=== PATIENT | male | born 2000 | race Two or more races ===

== ENCOUNTER 2021-09-26 08:38 | Outpatient (CLI) | payer OTHER | END 2021-09-26 15:00 | disposition home or self-care (01) | LOC: LAB 08:38 | PROVIDERS: ATTEND General Practice | DX: R07.89 Other chest pain (principal); Z00.01 Encounter for general adult medical examination with abnormal findings; Z11.3 Encounter for screening for infections with a predominantly sexual mode of transmission; Z12.11 Encounter for screening for malignant neoplasm of colon; Z13.228 Encounter for screening for other metabolic disorders; Z13.220 Encounter for screening for lipoid disorders; Z13.29 Encounter for screening for other suspected endocrine disorder; Z13.0 Encounter for screening for diseases of the blood and blood-forming organs and certain disorders involving the immune mechanism; Z13.1 Encounter for screening for diabetes mellitus; N39.0 Urinary tract infection, site not specified; E03.8 Other specified hypothyroidism; R73.09 Other abnormal glucose ==

== ENCOUNTER 2021-09-27 08:48 | Outpatient (CLI) | payer OTHER | END 2021-09-27 08:50 | disposition home or self-care (01) | LOC: LAB 08:48 | PROVIDERS: ATTEND General Practice | DX: E03.8 Other specified hypothyroidism (principal); N39.0 Urinary tract infection, site not specified; Z00.01 Encounter for general adult medical examination with abnormal findings; R73.09 Other abnormal glucose; Z11.3 Encounter for screening for infections with a predominantly sexual mode of transmission; Z12.11 Encounter for screening for malignant neoplasm of colon; Z13.228 Encounter for screening for other metabolic disorders; Z13.220 Encounter for screening for lipoid disorders; Z13.29 Encounter for screening for other suspected endocrine disorder; Z13.0 Encounter for screening for diseases of the blood and blood-forming organs and certain disorders involving the immune mechanism; Z13.1 Encounter for screening for diabetes mellitus ==

== ENCOUNTER 2022-10-28 12:20 | Outpatient (CLI) | payer OTHER | END 2022-10-28 12:24 | disposition home or self-care (01) | LOC: RAD 12:20 | PROVIDERS: ATTEND General Practice | DX: R50.9 Fever, unspecified (principal); Z11.52 Encounter for screening for COVID-19; R05.9 Cough, unspecified ==

== ENCOUNTER 2023-04-02 07:21 | Outpatient (CLI) | payer OTHER | END 2023-04-02 07:40 | disposition home or self-care (01) | LOC: LAB 07:21 | PROVIDERS: ATTEND General Practice | DX: E46 Unspecified protein-calorie malnutrition (principal); D64.9 Anemia, unspecified; E03.9 Hypothyroidism, unspecified; E55.9 Vitamin D deficiency, unspecified; D51.0 Vitamin B12 deficiency anemia due to intrinsic factor deficiency; D68.9 Coagulation defect, unspecified; D50.9 Iron deficiency anemia, unspecified; N39.0 Urinary tract infection, site not specified; M32.9 Systemic lupus erythematosus, unspecified; Z11.1 Encounter for screening for respiratory tuberculosis; Z11.3 Encounter for screening for infections with a predominantly sexual mode of transmission; Z11.4 Encounter for screening for human immunodeficiency virus [HIV]; Z12.11 Encounter for screening for malignant neoplasm of colon; Z13.29 Encounter for screening for other suspected endocrine disorder; Z13.220 Encounter for screening for lipoid disorders; Z13.228 Encounter for screening for other metabolic disorders ==

== ENCOUNTER → 2023-04-02 | Outpatient (CLI) | payer OTHER | END | disposition home or self-care (01) | LOC: SONOGRAMA 07:59 → RAD 10:00 | PROVIDERS: ATTEND General Practice | DX: M32.9 Systemic lupus erythematosus, unspecified (principal); D68.9 Coagulation defect, unspecified; R10.9 Unspecified abdominal pain; R05.8 Other specified cough ==

== ENCOUNTER 2023-04-07 11:13 | Outpatient (CLI) | payer OTHER | END 2023-04-07 11:17 | disposition home or self-care (01) | LOC: LAB 11:13 | PROVIDERS: ATTEND General Practice | DX: Z12.11 Encounter for screening for malignant neoplasm of colon (principal) ==